=== PATIENT | male | born 1990 | race Caucasian/White ===

== ENCOUNTER → 2016-08-26 | Outpatient (CLI) | payer OTHER ==
[2016-08-26 17:48] LABS: CH 31.7; HDW 2.73; HGB 16.1 gm/dL (13.0-17.5); MCH 31.9 pg (25.0-35.0); MCHC 34.2 g/dL (31.0-37.0); MCV 93.5 fL (80.0-100.0); RBC 5.03 m/uL (4.30-5.90); RDW 13.2 % (11.5-15.5)
[2016-08-26 18:37] LABS: ALT 59 U/L (21-72); AST 43 U/L (17-59); Alkaline Phosphatase 107 U/L (38-126); Anion Gap 13 mmol/L; Blood Urea Nitrogen 16 mg/dL (9-20); C Reactive Protein 8.7 mg/L (<10.0); Calcium 10.2 mg/dL (8.4-10.2); Carbon Dioxide 26 mmol/L (22-30); Chloride 104 mmol/L (98-107); Creatine Kinase 394 U/L (55-170); Glucose 94 mg/dL (74-99); Magnesium 2.1 mg/dL (1.6-2.3); Non-African American GFR(MDRD) >60 (>60 ml/min/1.73 sqM); Sodium 143 mmol/L (137-145); Total Bilirubin 0.7 mg/dL (0.2-1.3)
[2016-08-26 19:20] LABS: Vitamin B12 746 pg/mL (239-931)
[2016-08-26 20:49] LABS: Erythrocyte Sedimentation Rate 2 mm/hr (0-15)
[2016-08-27 05:32] LABS: Cyclic Citrullinated Pep IgG 5 UNITS (<20)
[2016-08-28 09:43] LABS: Vitamin E (Alpha Tocopherol) 1347 ug/dL (500-1800)
[2016-09-03 19:39] LABS: Vitamin K 633 pg/mL (80-1160)
== END | disposition home or self-care (01) ==
LOC: LABWHC1 17:21
PROVIDERS: ATTEND Psychiatry & Neurology Pain Medicine
DX: G89.4 Chronic pain syndrome (principal)
CPT/HCPCS: 36415; 80053; 82306; 82550; 82607; 83036; 83519; 83735; 84207; 84425; 84446; 84590; 84591; 84597; 85027; 85652; 86140; 86200; 86235

== ENCOUNTER 2019-01-23 23:23 | Emergency (ER) | payer BC, OTHER ==
[2019-01-23] MEDS ORDERED: IPRATROPIUM-ALBUTEROL 3 ML NEB INHALATION STA (23:40)
[2019-01-23] MEDS ORDERED: methylPREDNISolone SOD SUCCI 125 MG/2 ML VIAL IV STA (23:40)
[2019-01-23] MEDS ORDERED: SODIUM CHLORIDE 0.9% 1,000 ML IV STA (23:40)
[2019-01-23] MEDS ORDERED: KETOROLAC 30 MG/ML 1 ML VIAL IVP STA (23:42)
--- NOTE | 2019-01-23 23:54 | ED ---
Chest Pain HPI - General Chief Complaint: Chest Pain Stated Complaint: Chest Pain Time Seen by Provider: 01/23/19 23:39 Source: patient, RN notes reviewed, old records reviewed Mode of arrival: ambulatory - History of Present Illness Initial Comments: This is a 28-year-old male the ER for evaluation presents today for evaluation shortness of breath and chest pain. History of smoking. Chest pains right sided radiating to his back. No travel history no sick contacts. No fevers no cough congestion pain for weeks. Patient has no modifying factors for symptoms at home and does continue to smoke MD Complaint: chest pain, other (Cough and congestion) -: week(s) Onset: during rest, during exertion Pain Location: right chest Pain Radiation: back Severity: moderate Severity scale (1-10): 5 Quality: tightness, aching Consistency: intermittent Improves With: nothing Worsens With: exertion, inspiration Other Symptoms: cough Treatments Prior to Arrival: none - Related Data Home Medications Medication Instructions Recorded Confirmed Ibuprofen [Motrin] 800 mg PO TID PRN 10/18/14 01/24/19 Omeprazole Magnesium [PriLOSEC OTC] 20 mg PO DAILY 01/24/19 01/24/19 Previous Rx's Medication Instructions Recorded Albuterol Sulfate [Proair Hfa] 1 - 2 puff INHALATION Q4H PRN #1 01/24/19 inhaler Naproxen [Naprosyn] 500 mg PO Q12HR PRN #30 tab 01/24/19 predniSONE 50 mg PO DAILY #5 tab 01/24/19 Allergies Allergy/AdvReac Type Severity Reaction Status Date / Time cefuroxime axetil Allergy Anaphylaxis Verified 01/24/19 00:00 [From Ceftin] Review of Systems ROS Statement: Those systems with pertinent positive or pertinent negative responses have been documented in the HPI. ROS Other: All systems not noted in ROS Statement are negative. EKG Findings - EKG Comments: EKG Findings:: EKG shows sinus rhythm rate of 90, [place] 150, QRS 86, QTc 428 Past Medical History Past Medical History: Fibromyalgia, GERD/Reflux Additional Past Medical History / Comment(s): HIATAL HERNIA History of Any Multi-Drug Resistant Organisms: None Reported Past Surgical History: Orthopedic Surgery, Tonsillectomy Additional Past Surgical History / Comment(s): LT ROTATOR CUFF REPAIR X 2. COLONOSCOPY. EGD Past Anesthesia/Blood Transfusion Reactions: Postoperative Nausea & Vomiting (PONV) Past Psychological History: No Psychological Hx Reported Smoking Status: Current every day smoker - Past Family History Mother Family Medical History: No Reported History General Exam General appearance: alert, in no apparent distress Head exam: Present: atraumatic, normocephalic, normal inspection Eye exam: Present: normal appearance, PERRL, EOMI. Absent: scleral icterus, conjunctival injection, periorbital swelling ENT exam: Present: normal exam, mucous membranes moist Neck exam: Present: normal inspection. Absent: tenderness, meningismus, lymphadenopathy Respiratory exam: Present: normal lung sounds bilaterally. Absent: respiratory distress, wheezes, rales, rhonchi, stridor Cardiovascular Exam: Present: regular rate, normal rhythm, normal heart sounds. Absent: systolic murmur, diastolic murmur, rubs, gallop, clicks GI/Abdominal exam: Present: soft, normal bowel sounds. Absent: distended, tenderness, guarding, rebound, rigid Extremities exam: Present: normal inspection, full ROM, normal capillary refill. Absent: tenderness, pedal edema, joint swelling, calf tenderness Back exam: Present: normal inspection Neurological exam: Present: alert, oriented X3, CN II-XII intact Psychiatric exam: Present: normal affect, normal mood Skin exam: Present: warm, dry, intact, normal color. Absent: rash Course Vital Signs 01/23/19 01/24/19 01/24/19 23:35 00:23 00:40 Temperature 98.4 F Pulse Rate 102 H 76 78 Respiratory 16 Rate Blood Pressure 173/92 O2 Sat by Pulse 100 Oximetry 01/24/19 00:48 Temperature Pulse Rate 79 Respiratory 18 Rate Blood Pressure 124/74 O2 Sat by Pulse 98 Oximetry - Reevaluation(s) Reevaluation #1: 01/24/19 00:52 Medical records reviewed Reevaluation #2: 01/24/19 00:52 Patient symptoms are much improved Chest Pain MDM - MDM Plan I male the ER with history of smoking coming in with shortness of breath and cough history of smoking again and chest pain. CT is negative for acute disease patient is feeling better and can be discharged home, patient urged at length to quit smoking Disposition Clinical Impression: Bronchitis, Chest pain, Smoking, Pleurisy Disposition: HOME SELF-CARE Condition: Good Instructions (If sedation given, give patient instructions): Acute Bronchitis (ED), Pleurisy (ED) Prescriptions: Naproxen [Naprosyn] 500 mg PO Q12HR PRN #30 tab PRN Reason: Pain predniSONE 50 mg PO DAILY #5 tab Albuterol Sulfate [Proair Hfa] 1 - 2 puff INHALATION Q4H PRN #1 inhaler PRN Reason: Shortness Of Breath Is patient prescribed a controlled substance at d/c from ED?: No Referrals: None,Stated [Primary Care Provider] - 1-2 days
[2019-01-24 00:09] LABS: Basophils % (A) 0 %; Eosinophils # (A) 0.3 k/uL (0-0.7); Eosinophils % (A) 3 %; HCT 47.1 % (39.0-53.0); HGB 15.8 gm/dL (13.0-17.5); Lymphocytes # (A) 3.4 k/uL (1.0-4.8); Lymphocytes % (A) 36 %; MCH 30.7 pg (25.0-35.0); MCHC 33.4 g/dL (31.0-37.0); MCV 91.9 fL (80.0-100.0); Mean Platelet Volume 6.4; Monocytes # (A) 0.6 k/uL (0-1.0); Monocytes % (A) 7 %; Neutrophils # (A) 4.9 k/uL (1.3-7.7); Neutrophils % (A) 52 %; Platelet Count 346 k/uL (150-450); RBC 5.13 m/uL (4.30-5.90); WBC 9.5 k/uL (3.8-10.6)
[2019-01-24 00:19] LABS: ALT 26 U/L (21-72); AST 23 U/L (17-59); African American GFR (CKD) >90 (>60 ml/min/1.73 sqM); Albumin 4.5 g/dL (3.5-5.0); Alkaline Phosphatase 112 U/L (38-126); Anion Gap 8 mmol/L; Blood Urea Nitrogen 21 mg/dL (9-20); Calcium 9.6 mg/dL (8.4-10.2); Carbon Dioxide 27 mmol/L (22-30); Chloride 109 mmol/L (98-107); Creatine Kinase 188 U/L (55-170); Glucose 92 mg/dL (74-99); Magnesium 2.2 mg/dL (1.6-2.3); Sodium 144 mmol/L (137-145); Total Bilirubin 0.3 mg/dL (0.2-1.3); Total Protein 7.3 g/dL (6.3-8.2)
[2019-01-24 00:25] LABS: D-Dimer <0.17 mg/L FEU (<0.60); INR 0.9 (<1.2); Partial Thromboplastin Time 24.3 sec (22.0-30.0); Prothrombin Time 10.1 sec (9.0-12.0)
--- NOTE | 2019-01-24 00:48 | CT ---
History: ITS.REASON CT Reason: Pain Exam: CTA CHEST MIP images obtained Technique more: CTDI is 10 mGy and DLP is 440.9 mGy-cm. Technique more: This CT exam was performed using one or more of the following dose reduction techniques: automated exposure control, adjustment of the mA and/or kV according to patient size, and/or use of iterative reconstruction technique. Comparison: None available FINDINGS: No evidence of filling defect to suggest pulmonary embolism. Thoracic aorta appears within limits. No pericardial or pleural effusion. Appearance of a replaced hepatic artery, incidental anatomic variant noted. The central airways are patent without focal consolidation. 4 mm noncalcified nonspecific nodular density adjacent to the minor fissure for example axial 94. Posterolateral right seventh nonosseous united nonacute appearing rib fracture noted. IMPRESSION: No evidence of filling defect to suggest pulmonary embolism. 4 mm noncalcified nonspecific nodular density adjacent to the minor fissure for example axial 94.
[2019-01-24 00:49] VITALS: RESP 18
[2019-01-24 01:19] VITALS: BP 133/73; PULSE 77; TEMP 97.8
== END 2019-01-24 01:19 | disposition home or self-care (01) ==
LOC: EC 23:23
DX: J40 Bronchitis, not specified as acute or chronic (principal); R09.1 Pleurisy; K21.9 Gastro-esophageal reflux disease without esophagitis; F17.200 Nicotine dependence, unspecified, uncomplicated; Z79.899 Other long term (current) drug therapy; Z88.1 Allergy status to other antibiotic agents
CPT/HCPCS: 36415; 94640; 93005; 85379; 83880; 80053; 82550; 83735; 84484; 85025; 85610; 85730; 71275; 99285; 96374; 96375; 96361; J2930; J1885; Q9967